=== PATIENT | female | born 1960 | race American Indian/Alaskan Native ===

== ENCOUNTER 2017-03-14 12:29 | Outpatient (CLI) | payer OTHER ==
--- NOTE | 2017-03-14 13:55 | XRay Report ---
RIGHT FOOT RADIOGRAPHS INDICATION: Foot pain. COMPARISON: None similar at this institution. FINDINGS: AP, lateral and oblique views of the right foot demonstrate normal bones, joints and soft tissues. Small plantar and tiny dorsal calcaneal spurs. CONCLUSION: No acute bony abnormality. Thank you for the opportunity to participate in this patient's care.
== END 2017-03-14 12:30 | disposition home or self-care (01) ==
LOC: SPVIMAG 12:29
PROVIDERS: ATTEND Orthopaedic Surgery
DX: M77.31 Calcaneal spur, right foot (principal)